=== PATIENT | male | born 1990 | race Caucasian/White ===

== ENCOUNTER 2020-02-26 00:30 | Emergency (ER) | payer OTHER ==
[~2020-02-26] VITALS: Ht 175.3 cm; Wt 83.9 kg
[~2020-02-26 00:30] MED LIST: AUGMENTIN 875-1 EACH PO
--- NOTE | 2020-02-26 01:44 | NUR ---
PT WAS SWABBED FOR COVID 19 FULL PPE DONNED SAMPLE SENT TO LAB
== END 2020-02-26 01:39 | disposition home or self-care (01) ==
LOC: ED 00:30
DX: J02.9 Acute pharyngitis, unspecified (principal); Z20.822 Contact with and (suspected) exposure to COVID-19
CPT/HCPCS: 87081; 87880; 99283; A9270; C9803; J1100; U0003

== ENCOUNTER 2022-07-26 06:24 | Emergency (ER) | payer OTHER ==
[~2022-07-26] VITALS: Ht 175.3 cm; Wt 87.4 kg
[2022-07-26] MEDS ORDERED: ONDANSETRON ODT8 MG PO (07:38)
[2022-07-26] MEDS ORDERED: PERCOCET 5-3251 EACH PO (07:38)
[2022-07-26] MEDS ORDERED: FLOMAX0.4 MG PO (07:38)
[2022-07-26 08:41] VITALS: BP 139/92
[2022-07-26] MEDS ORDERED: DILAUDID2 MG PO (18:25)
[2022-07-26] MEDS ORDERED: REGLAN10 MG PO (18:25)
[2022-07-26] MEDS ORDERED: KETOROLAC TROME10 MG PO (18:26)
== END 2022-07-26 08:42 | disposition home or self-care (01) ==
LOC: ED 06:24
DX: N13.2 Hydronephrosis with renal and ureteral calculous obstruction (principal); Z79.899 Other long term (current) drug therapy
CPT/HCPCS: 36415; 74176; 80053; 85025; 96374; 96375; 99284-25; J1170; J1885; J2405; J7121

== ENCOUNTER 2022-07-26 16:52 | Emergency (ER) | payer OTHER ==
[~2022-07-26] VITALS: Ht 175.3 cm; Wt 87.1 kg
[~2022-07-26 16:52] MED LIST changes: +FLOMAX0.4 MG PO; +ONDANSETRON ODT8 MG PO; +PERCOCET 5-3251 EACH PO
--- OUTSIDE RECORDS SUMMARY | 2022-07-26 16:59 | XMS ---
PreManage Notification: JANAY ANGELES [employer] Events No recent Security Events currently on file CRITERIA MET - [facility] - 2 Visits in 30 Days CARE PROVIDERS There are no care providers on record at this time. Manuel has no Care Guidelines for this patient. [facility] MO[facility] NOTE: Visits indicate total known visits. ED/C VISIT TRACKING (12 MO.) [facility] COMPLAINT: - L FLANK PAIN 07/26/2022 06:25 [facility] OR TYPE: Emergency COMPLAINT: - L FLANK PAIN INPATIENT VISIT TRACKING (12 MO.) No inpatient visits to display in this time frame [email or web address]
[2022-07-26] MEDS ORDERED: REGLAN10 MG PO (18:25)
[2022-07-26] MEDS ORDERED: DILAUDID2 MG PO (18:25)
[2022-07-26] MEDS ORDERED: KETOROLAC TROME10 MG PO (18:26)
[2022-07-26 18:50] VITALS: BP 145/94
== END 2022-07-26 18:53 | disposition home or self-care (01) ==
LOC: ED 16:52
DX: N20.1 Calculus of ureter (principal); Z79.899 Other long term (current) drug therapy
CPT/HCPCS: 96374; 96375; 99283-25; J1170; J1885; J7121